=== PATIENT | female | born 1995 | race Caucasian/White ===

== ENCOUNTER 2017-02-13 12:24 | Inpatient (IN) | payer MEDICAID, OTHER ==
[2017-02-13] MEDS ORDERED: Acetaminophen TAB* 325 MG PO PRN (12:55)
[2017-02-13] MEDS ORDERED: Oxytocin in LR* 20 UNITS/1,000 ML BAG IVPB SCH (14:00)
[2017-02-13 14:15] LABS: Hematocrit 35 % (35-47); Hemoglobin 11.4 g/dl (12.0-16.0); Mean Corpuscular HGB Conc 33 g/dl (31-36); Mean Corpuscular Hemoglobin 28 pg (27-31); Mean Corpuscular Volume 86 fL (80-97); Mean Platelet Volume 9 um3 (7.4-10.4); Red Blood Count 4.04 10^6/ul (4.0-5.4); Red Cell Distribution Width 14 % (10.5-15); White Blood Count 8.6 10^3/ul (3.5-10.8)
[2017-02-13] MEDS ORDERED: OBEPIDURAL* 250 ML ONE (15:52)
[2017-02-13] MEDS ORDERED: Sodium Citrate/Citric Acid* 15 ML UDC PO PRN (16:21)
[2017-02-13] MEDS ORDERED: Phenylephrine IV* 40 MCG/ML 10 ML SYRINGE IV PUSH PRN ×2 (16:21)
[2017-02-13] MEDS ORDERED: OBEPIDURAL* 250 ML EPIDURAL SCH (17:00)
[2017-02-13] MEDS ORDERED: Sodium Citrate/Citric Acid* 15 ML UDC PO ONE (19:39)
[2017-02-13] MEDS ORDERED: ceFOXitin 2 GM IVPREMIX* 2 GM/50 ML BAG IVPB ONE (19:39)
[2017-02-13] MEDS ORDERED: Morphine PF AMP (0.5MG/ML)* 5 MG/10 ML AMP ONE (19:51)
[2017-02-13] MEDS ORDERED: fentaNYL* 50 MCG/ML 2 ML VIAL (100 MCG VIAL) ONE ×2 (19:51→22:00)
[2017-02-13] MEDS ORDERED: Chloroprocaine 3%* 20 ML VIAL ONE (19:53)
[2017-02-13] MEDS ORDERED: ceFOXitin 2 GM IVPREMIX* 2 GM/50 ML BAG ONE (20:01)
[2017-02-13] MEDS ORDERED: Sodium Citrate/Citric Acid* 15 ML UDC ONE (20:01)
[2017-02-13] MEDS ORDERED: Phenylephrine IV* 40 MCG/ML 10 ML SYRINGE ONE ×2 (20:34→21:05)
[2017-02-13] MEDS ORDERED: Ketorolac INJ* 30 MG/ML 1 ML VIAL IV PRN (20:56)
[2017-02-13] MEDS ORDERED: fentaNYL* 50 MCG/ML 2 ML VIAL (100 MCG VIAL) IV PRN (20:56)
[2017-02-13] MEDS ORDERED: OXYTOCIN* 10 UNITS/ML 1 ML VIAL ONE (21:05)
[2017-02-13] MEDS ORDERED: Ondansetron INJ* 2 MG/ML VIAL ONE (21:05)
[2017-02-13] MEDS ORDERED: Nalbuphine* 20 MG/ML 1 ML VIAL IV PRN (21:07)
[2017-02-13] MEDS ORDERED: Naloxone* 2 MG in NS 0.9% 250 ML* 250 ML IV PRN (21:07)
[2017-02-13] MEDS ORDERED: Naloxone* 0.4 MG/ML 1 ML VIAL IV PRN (21:07)
[2017-02-13] MEDS ORDERED: Ondansetron INJ* 2 MG/ML VIAL IV PRN (21:07)
[2017-02-13] MEDS ORDERED: Glycerin ADULT SUPP PR PRN (21:15)
[2017-02-13] MEDS ORDERED: Dibucaine 1% 28.35 GM TUBE PR PRN (21:15)
[2017-02-13] MEDS ORDERED: Zolpidem TAB* 5 MG PO PRN (21:15)
[2017-02-13] MEDS ORDERED: Witch Hazel PAD* JAR TOPICAL PRN (21:15)
[2017-02-13] MEDS ORDERED: Measles, Mumps,Rubella VACC* 0.5 ML/VIAL SUBCUT ONE (21:17)
[2017-02-13] MEDS ORDERED: Ketorolac INJ* 30 MG/ML 1 ML VIAL ONE (22:31)
[2017-02-14] MEDS: Ketorolac INJ* 30 MG/ML 1 ML VIAL IV PRN ×3 (04:38→16:58)
[2017-02-14] MEDS: oxyCODONE/Acetamin 5/325 MG* TAB PO PRN ×4 (06:03→21:29)
[2017-02-14 07:06] LABS: Hematocrit 28 % (35-47); Hemoglobin 9.4 g/dl (12.0-16.0); Mean Corpuscular HGB Conc 34 g/dl (31-36); Mean Corpuscular Hemoglobin 28 pg (27-31); Mean Corpuscular Volume 84 fL (80-97); Mean Platelet Volume 9 um3 (7.4-10.4); Red Blood Count 3.34 10^6/ul (4.0-5.4); Red Cell Distribution Width 14 % (10.5-15); White Blood Count 9.2 10^3/ul (3.5-10.8)
[2017-02-14] MEDS ORDERED: Nicotine PATCH 7 MG/24 HR* PATCH TRANSDERM SCH (08:00)
[2017-02-14] MEDS: Simethicone CHEW TAB* 80 MG PO SCH ×4 (09:01→21:29)
[2017-02-14] MEDS: Docusate CAP* 100 MG PO SCH ×3 (09:01→21:29)
[2017-02-14] MEDS: Ferrous Gluconate TAB* 324 MG TAB PO SCH ×2 (09:01→21:29)
[2017-02-14] MEDS ORDERED: Nicotine Patch Removal NOTE PATCH OFF SCH (21:00)
[2017-02-15] MEDS: oxyCODONE/Acetamin 5/325 MG* TAB PO PRN ×3 (04:27→21:32)
[2017-02-15] MEDS: Ibuprofen TAB* 600 MG PO PRN ×3 (04:27→18:19)
[2017-02-15] MEDS: Ferrous Gluconate TAB* 324 MG TAB PO SCH ×2 (08:43→21:32)
[2017-02-15] MEDS: Docusate CAP* 100 MG PO SCH ×3 (08:43→21:31)
[2017-02-15] MEDS: Simethicone CHEW TAB* 80 MG PO SCH ×3 (08:43→21:34)
[2017-02-16] MEDS: Ibuprofen TAB* 600 MG PO PRN ×2 (00:43→08:44)
[2017-02-16] MEDS: oxyCODONE/Acetamin 5/325 MG* TAB PO PRN (05:34)
[2017-02-16 08:10] VITALS: BP 141/89
[2017-02-16] MEDS: Ferrous Gluconate TAB* 324 MG TAB PO SCH (08:43)
[2017-02-16] MEDS: Simethicone CHEW TAB* 80 MG PO SCH (08:43)
--- NOTE | 2017-02-18 00:34 | OP ---
DATE OF OPERATION: 02/13/17 - ROOM #MCHOB-101 DATE OF : 89 SURGEON: Kamran Ayers MD. DATA ENTRY: Mirian Hernandez, Core Machine Operator. ANESTHESIOLOGIST: Colton Roman MD ANESTHESIA: Epidural. PRE-OP DIAGNOSIS: Postdated at 41 weeks with a persistent category II tracing. POST-OP DIAGNOSIS: Postdated at 41 weeks with a persistent category II tracing. OPERATIVE PROCEDURE: Primary low-transverse section. ESTIMATED BLOOD LOSS: 600 cc. IV FLUIDS: She received 1300 cc of IV crystalloid fluid. URINE OUTPUT: Clear. FINDINGS: Delivery of a viable male infant over clear fluid with a weight of 7 pounds 3 ounces and Apgars of 9 and 9. The placenta was grossly intact within normal limits. The uterus, adnexa, bowel, and bladder were all normal and there were no complications. DESCRIPTION OF PROCEDURE: The patient was taken to the operating room, where she was identified. She was placed on the operating table, where an epidural anesthetic was obtained without difficulty. She was then placed in the supine position with a leftward tilt, prepped and draped in a normal sterile fashion. A Pfannenstiel skin incision was made with a knife and carried through to the underlying layer of fascia. The fascia was then nicked in midline and extended laterally with curved Hankins scissors. The fascia was then grasped superiorly and inferiorly with Marylou clamps and dissected off sharply from the rectus muscle. The rectus muscle was in the midline bluntly. The peritoneum was identified, grasped with pickups, and entered sharply with Metzenbaum scissors, and extended superiorly and inferiorly sharply. A bladder blade was then inserted into the patient's abdomen. A bladder flap was then created using Metzenbaum scissors over which the bladder blade was then reintroduced. A uterine incision was then made with a knife, extended laterally with a bandage scissors. The infant's head was then grasped and delivered atraumatically. The nose and mouth were suctioned. The rest of the 's body was then delivered. The cord was clamped and cut, and the was handed off to awaiting senior sales assistant. Cord blood was sent to pathology. The placenta was removed manually. The uterus was then exteriorized, cleared of all clot and debris using moist laparotomy sponges. The uterine incision was then closed using 0 Polysorb suture in a running locked fashion with a second imbricating layer of 0 Polysorb suture. After hemostasis was obtained on the uterine incision, the uterus was then returned to the patient's abdomen. The gutters were then cleared of all clots and debris using moist laparotomy sponges. All the sponges and instruments were removed from the patient's abdomen. The peritoneum was then closed using 3-0 Polysorb suture in a running fashion. The fascia was closed using 0 Polysorb suture in a running fashion and the skin was closed with 4-0 Monocryl in a subcuticular stitch. The patient tolerated the procedure well. Sponge, lap, needle counts were correct x2. She was then transferred to the recovery room area in stable condition. [id number]/[facility] #: [id number] MELLO
== END 2017-02-16 12:37 | disposition home or self-care (01) | DRG 540 ==
LOC: MCHOBOUT 12:24 → MCHOB 12:56
PROVIDERS: ADMIT Obstetrics & Gynecology; ATTEND Obstetrics & Gynecology
PROC: 10907ZC Drainage of Amniotic Fluid, Therapeutic from Products of Conception, Via Natural or Artificial Opening (ICD-10-PCS; 2017-02-13)
PROC: 10D00Z1 Extraction of Products of Conception, Low, Open Approach (ICD-10-PCS; 2017-02-13)
PROC: 10H07YZ Insertion of Other Device into Products of Conception, Via Natural or Artificial Opening (ICD-10-PCS; 2017-02-13)
PROC: 3E033VJ Introduction of Other Hormone into Peripheral Vein, Percutaneous Approach (ICD-10-PCS; principal; 2017-02-13 20:15)
DX: O48.0 Post-term pregnancy (principal); F17.200 Nicotine dependence, unspecified, uncomplicated; O99.334 Smoking (tobacco) complicating childbirth; Z3A.40 40 weeks gestation of pregnancy; Z37.0 Single live birth; O90.81 Anemia of the puerperium; O76 Abnormality in fetal heart rate and rhythm complicating labor and delivery
CPT/HCPCS: 36415; 85025; 86850; 86900; 86901; A9270-GY; J0694; J1885; J2300; J2400; J2405; J2590; J3010

== ENCOUNTER 2018-07-22 16:14 | Emergency (ER) | payer OTHER ==
--- NOTE | 2018-07-22 17:30 | ED ---
Progress - Progress Note Progress Note: Patient requests female physician. Re-Evaluation - Re-Evaluation First Eval Re-Evaluation Time: 20:20 Comment: pain still present Second Eval Re-Evaluation Time: 21:15 Comment: explained results to patient Course/Dx - Diagnoses Provider Diagnoses: Constipation, UTI (urinary tract infection), Discharge - Sign-Out/Discharge Documenting (check all that apply): Patient Departure - Discharge Plan Condition: Good Disposition: HOME Prescriptions: Nitrofurantoin Monohyd/M-Cryst [Macrobid 100 mg Capsule] 100 mg PO BID #13 cap Psyllium EDGAR* [Metamucil EDGAR*] 1 pkt PO DAILY #20 packet Patient Education Materials: Urinary Tract Infection in (ED) Referrals: Mirian Hernandez CNM [Primary Care Provider] - Additional Instructions: add metamucil as needed for constipation take macrobid twice a day for 7 days Take tyenlol as needed for pain Follow up with ob within 7 days Return to ED if develop any fever or any new or worsening symptoms - Billing Disposition and Condition Condition: GOOD Disposition: Home - Attestation Statements Document Initiated by Scribe: Yes Documenting Scribe: Clyde Ravi Provider For Whom Scribe is Documenting (Include Credential): Navi Ulloa MD Scribe Attestation: Clyde Carson, lisaed for Navi Ulloa MD on 07/22/18 at 2148. Scribe Documentation Reviewed: Yes Provider Attestation: The documentation as recorded by the Clyde rendon accurately reflects the service I personally performed and the decisions made by me, Navi Ulloa MD Status of Scribe Document: Viewed
--- NOTE | 2018-07-22 18:06 | ED ---
GI/ HPI - HPI Summary HPI Summary: 22 year old female at 17 weeks presents with dysuria for the past couple days. She denies any flank pain. She denies any fevers. She admits occasional nausea. She states that she's been having crampy lower abdominal pain. She states that she was treated for chlamydia month ago but her boyfriend did not take the treatment as prescribed so she got reinfected. She just took the tablets last night and has not had sex since. She admits to abnormal vaginal discharge. She denies any vaginal bleeding. she states she's been having rectal pain whenever she has a bowel movement. She states it is a burning itching pain. She states she she noticed some occasional blood when she wipes. States she's having issues with constipation but is now having normal bowel movements. she states that the abdominal pain feels like period cramps and is constant does not feel like contractions. she denies any back pain. no fevers. - History of Current Complaint Chief Complaint: EDUrogenitalProblems Time Seen by Provider: 07/22/18 17:12 Stated Complaint: POSS UTI Pain Intensity: 5 - Allergy/Home Medications Allergies/Adverse Reactions: Allergies Allergy/AdvReac Type Severity Reaction Status Date / Time No Known Allergies Allergy Verified 07/22/18 16:46 PMH/Surg Hx/FS Hx/Imm Hx Endocrine/Hematology History: Denies: Hx Diabetes Cardiovascular History: Denies: Hx Hypertension History: Denies: Hx Renal Disease Infectious Disease History: No Infectious Disease History: Denies: Traveled Outside the [place] in Last 30 Days - Family History Known Family History: Positive: Non-Contributory - Social History Alcohol Use: None Substance Use Type: Reports: None Smoking Status (MU): Light Every Day Tobacco Smoker Type: Cigarettes Amount Used/How Often: 1 per day Review of Systems Negative: Fever Negative: Chest Pain Negative: Shortness Of Breath Positive: Abdominal Pain, Nausea, Other - rectal pain. Negative: Vomiting Positive: dysuria All Other Systems Reviewed And Are Negative: Yes Physical Exam Triage Information Reviewed: Yes Vital Signs On Initial Exam: Initial Vitals Temp Pulse Resp BP Pulse Ox 99.0 F 99 20 122/73 98 07/22/18 16:39 07/22/18 16:39 07/22/18 16:39 07/22/18 16:39 07/22/18 16:39 Vital Signs Reviewed: Yes Appearance: Positive: Well-Appearing Skin: Positive: Warm, Dry Head/Face: Positive: Normal Head/Face Inspection Eyes: Positive: Normal, Conjunctiva Clear ENT: Positive: Pharynx normal Respiratory/Lung Sounds: Positive: Clear to Auscultation, Breath Sounds Present Cardiovascular: Positive: Normal, RRR Abdomen Description: Positive: Nontender, Soft, Other: - normal rectal tone, hemorrhoids present. Negative: CVA Tenderness (R), CVA Tenderness (L) Bowel Sounds: Positive: Present Musculoskeletal: Positive: Normal Neurological: Positive: Normal Psychiatric: Positive: Normal Diagnostics - Vital Signs Vital Signs Temp Pulse Resp BP Pulse Ox 07/22/18 16:39 99.0 F 99 20 122/73 98 - Laboratory Result Diagrams: 07/22/18 18:24 07/22/18 18:24 Lab Statement: Any lab studies that have been ordered have been reviewed, and results considered in the medical decision making process. - Ultrasound No standard instances Ultrasound Interpretation Completed By: Radiologist Summary of Ultrasound Findings: IMPRESSION: Single live intrauterine fetus in cephalic presentation with a composite age of. 18 weeks 2 days. The EDC is 12/21. Re-Evaluation - Re-Evaluation First Eval Re-Evaluation Time: 20:20 Comment: pain still present Second Eval Re-Evaluation Time: 21:15 Comment: explained results to patient GIGU Course/Dx - Course Course Of Treatment: 22 year old female at 17 weeks presents with dysuria for the past couple days. She denies any flank pain. She denies any fevers. She admits occasional nausea. She states that she's been having crampy lower abdominal pain. She states that she was treated for chlamydia month ago but her boyfriend did not take the treatment as prescribed so she got reinfected. She just took the tablets last night and has not had sex since. She admits to abnormal vaginal discharge. She denies any vaginal bleeding. she states she's been having rectal pain whenever she has a bowel movement. She states it is a burning itching pain. She states she she noticed some occasional blood when she wipes. States she's having issues with constipation but is now having normal bowel movements. on exam has nontender abd. rectal exam has hemorrhoids present. pelvic exam nontender. clear discharge present. got std cultures. expect chlamydia to come back positive as patient just took treatment last night with azithromycin 1000mg. wbc normal. crp elevated. u/s normal intrauterine . urine shows potential uti with symptoms will treat with macrobid. will place on metamucil for constipation. told to follow up with ob. patient understand and agrees with plan. - Diagnoses Differential Diagnoses - Female: , STD, Ureteral Calculi Provider Diagnoses: Constipation, UTI (urinary tract infection), Discharge - Sign-Out/Discharge Documenting (check all that apply): Patient Departure - Discharge Plan Condition: Good Disposition: HOME Prescriptions: Nitrofurantoin Monohyd/M-Cryst [Macrobid 100 mg Capsule] 100 mg PO BID #13 cap Psyllium EDGAR* [Metamucil EDGAR*] 1 pkt PO DAILY #20 packet Patient Education Materials: Urinary Tract Infection in (ED) Referrals: Mirian Hernandez CNM [Primary Care Provider] - Additional Instructions: add metamucil as needed for constipation take macrobid twice a day for 7 days Take tyenlol as needed for pain Follow up with ob within 7 days Return to ED if develop any fever or any new or worsening symptoms - Billing Disposition and Condition Condition: GOOD Disposition: Home
[2018-07-22 18:36] LABS: ABS Basophils 0 10^3/ul (0-0.2); ABS Eosinophils 0 10^3/ul (0-0.6); ABS Lymphocytes 0.7 10^3/ul (1.0-4.8); ABS Monocytes 0.3 10^3/ul (0-0.8); ABS Neutrophils 3.6 10^3/ul (1.5-7.7); ABS Nucleated RBC 0 10^3/ul; Eosinophil % 0.2 %; Hematocrit 34 % (35-47); Hemoglobin 11.6 g/dl (12.0-16.0); Lymphocyte % 15.5 %; Mean Corpuscular HGB Conc 34 g/dl (31-36); Mean Corpuscular Hemoglobin 29 pg (27-31); Mean Corpuscular Volume 83 fL (80-97); Mean Platelet Volume 7.7 fL (7.4-10.4); Nucleated Red Blood Cells % 0; Platelet Count 199 10^3/ul (150-450); Red Blood Count 4.08 10^6/ul (4.00-5.40); Red Cell Distribution Width 14 % (10.5-15); White Blood Count 4.6 10^3/ul (3.5-10.8)
[2018-07-22 18:57] LABS: Albumin 3.7 g/dL (3.2-5.2); Albumin/Globulin Ratio 1.2 (1-3); BUN/Creatinine Ratio 7.8 (8-20); C Reactive Protein 102.91 mg/L (<8.01); Calcium 8.8 mg/dL (8.6-10.3); EGFR Non-African American 150.8 (>60); Globulin 3.1 g/dL (2-4); Potassium 3.6 mmol/L (3.5-5.0); Total Bilirubin 0.3 mg/dL (0.2-1.0); Total Protein 6.8 g/dL (6.4-8.9)
[2018-07-22 19:29] LABS: Urine Appearance Clear; Urine Bacteria Absent (Absent); Urine Bilirubin Negative (Negative); Urine Blood Negative (Negative); Urine Color Amber; Urine Glucose Negative (Negative); Urine Ketones 1+ (Negative); Urine Nitrite Negative (Negative); Urine Protein 1+(30 mg/dL) (Negative); Urine Red Blood Cell Trace(0-2/hpf) (Absent); Urine Specific Gravity 1.019 (1.010-1.030); Urine Urobilinogen Positive (Negative); Urine White Blood Cell 1+(6-10/hpf) (Absent)
[2018-07-22] MEDS ORDERED: Nitrofurantoin Macrocrystals* 50 MG CAP PO ONE (19:41)
[2018-07-22 22:06] VITALS: BP 115/68
== END 2018-07-22 21:30 | disposition home or self-care (01) ==
LOC: ED 16:14
DX: O23.41 Unspecified infection of urinary tract in pregnancy, first trimester (principal); Z3A.17 17 weeks gestation of pregnancy; R10.84 Generalized abdominal pain; R30.0 Dysuria; R11.0 Nausea; F17.210 Nicotine dependence, cigarettes, uncomplicated; K59.00 Constipation, unspecified; R10.2 Pelvic and perineal pain
CPT/HCPCS: 36415; 76815; 80053; 81003; 81015; 85025; 86140; 87086; 87480; 87491; 87510; 87591; 87661; 99283; A9270-GY

== ENCOUNTER 2018-12-16 13:28 | Inpatient (IN) | payer OTHER ==
[2018-12-16] MEDS ORDERED: Lactated Ringers 1000 ML Bag* 1,000 ML IV ONE ×2 (14:29→16:17)
[2018-12-16] MEDS ORDERED: Buffered Lidocaine 1% SYRIN* 1 ML/SYRINGE INTRADERM ONE (14:29)
--- NOTE | 2018-12-16 14:55 | HP ---
General Information - Reason for Visit leaking fluid - General Information Maternal Age: 23 Grav: 3 Para: 2 SAB: 0 IEA: 0 Estimated Due Date: 12/17/18 Determined By: Early Ultrasound Maternal Blood Type and Rh: A Positive - Results this Serology/RPR Result: Non-Reactive Rubella Result: Non-Immune HBsAg Result: Negative HIV Result: Negative GBS Culture Result: Negative Past Medical History Delivery History: See Records Pertinent Past Medical History: See Records Pertinent Past Surgical History: See Records Pertinent Family History: See Records - Antepartal Records Antepartal Records: Reviewed, Complicated by: - obesity /desired vaginal after section but now declines Review of Systems Constitutional: Comfortable CV Complaint: No Respiratory: Shortness of Breath: No Gastrointestinal: No Nausea/Vomiting, Normal Bowel Movement Genitourinary: Leaking Fluid, No Dysuria, No Bleeding Musculoskeletal: No Complaint Neurological: No Headache Movement: Normal Exam Allergies/Adverse Reactions: Allergies No Known Allergies Allergy (Verified 12/16/18 14:02) T : 98.1 BP : 117/71 RR : 18 P: 100 Lab Values - Entire Visit: Laboratory Tests 12/16/18 13:40 Vag Amniotic Fld Detect Positive - Measurements Height: 5 ft 6 in Weight: 214 lb Weight in lbs: 214.823043 Body Mass Index (BMI): 34.5 Pre- Weight: 230 lb Weight Gained This : -16 lbs and 0 ozs - Exam Breast: Breast Exam Deferred CVA: No CVA Tenderness Extremities: No Edema Heart: Normal Rhythm/Heart Sounds HEENT: No Significant Findings Lungs: Clear Bilaterally Rectal: Rectal Exam Deferred Reflexes: DTR 2+ Thyroid: No Thyromegaly - Abdominal Exam Abdomen Exam: Non-Tender - Ultrasound/Biophysical Profile Ultrasound Status: Not Done Targeted Exam Findings Cervical Exam: 3cm Effacement: 70% Station: -2 Presenting Part: Vertex Membrane Status: Leaking Amniotic Fluid Evaluation: Gross Rupture EFM Findings - External Monitor Findings Baseline Heart Rate: 130 External Monitor Findings: Accelerations Present, No Pattern of Variable or Late Decelerations, Variability Moderate Contractions: Irregular Assessment/Plan - Assessment PT 23 yo G 3 P2002 presents at 39 6/7 with spontaneous rupture of membranes meconium and now declines a trial of labor after revieiw of risks of trial of labor after section. Pt is aware of risks of vaginal after section to include uterine rupture with subsequent risk of need for blood transfusion further surgery and cerebral palsy risk to the baby should rupture occur. Pt is aware this risk is under 2 %. Pt is also aware of risk of repeat section to include infection, bleeding ,damage to internal organs, pain scarring and risks of subsequent sections. Plan is to wait 6 hours after eating prior to repeating section as she is not in active labor and no distress is present. - Plan Plan Comment: plan is as outlined in above paragraph
[2018-12-16] MEDS ORDERED: Lactated Ringers 1000 ML Bag* 1,000 ML IV SCH ×3 (15:00→22:00)
[2018-12-16 15:16] LABS: ABS Basophils 0.1 10^3/ul (0-0.2); ABS Lymphocytes 1.3 10^3/ul (1.0-4.8); ABS Monocytes 0.5 10^3/ul (0-0.8); ABS Neutrophils 9.5 10^3/ul (1.5-7.7); Eosinophil % 0.4 %; Hematocrit 32 % (35-47); Hemoglobin 10.5 g/dL (12.0-16.0); Lymphocyte % 11.7 %; Mean Corpuscular HGB Conc 33 g/dL (31-36); Mean Corpuscular Hemoglobin 26 pg (27-31); Mean Corpuscular Volume 80 fL (80-97); Mean Platelet Volume 8.4 fL (7.4-10.4); Platelet Count 312 10^3/uL (150-450); Red Cell Distribution Width 14 % (10.5-15); White Blood Count 11.5 10^3/uL (3.5-10.8)
[2018-12-16] MEDS ORDERED: OBEPIDURAL* 250 ML EPIDURAL ONE (15:18)
[2018-12-16] MEDS ORDERED: ceFOXitin 2 GM IVPREMIX* 2 G/50 ML BAG IVPB ONE (15:51)
[2018-12-16] MEDS ORDERED: Phenylephrine 10 MG/ML VIAL* 1 ML VIAL ONE (15:54)
[2018-12-16] MEDS ORDERED: Famotidine TAB* 20 MG PO PRN (16:17)
[2018-12-16] MEDS ORDERED: Phenylephrine 40 MCG/ML SYRINGE IV PUSH PRN ×2 (16:17)
[2018-12-16] MEDS ORDERED: Sodium Citrate/Citric Acid* 15 ML UDC PO PRN (16:17)
[2018-12-16] MEDS ORDERED: OBEPIDURAL* 250 ML EPIDURAL SCH (17:00)
[2018-12-16] MEDS ORDERED: Famotidine IV* 10 MG/ML 2 ML (20 mg) IV SLOW PU ONE (18:31)
[2018-12-16] MEDS ORDERED: Sodium Citrate/Citric Acid* 15 ML UDC PO ONE (18:32)
[2018-12-16] MEDS ORDERED: Phenylephrine 40 MCG/ML SYRINGE ONE (19:42)
[2018-12-16] MEDS ORDERED: OXYTOCIN* 10 UNITS/ML 1 ML VIAL ONE (19:42)
[2018-12-16] MEDS ORDERED: Chloroprocaine 3%* 20 ML VIAL ONE (19:43)
[2018-12-16] MEDS ORDERED: fentaNYL* 50 MCG/ML 2 ML VIAL (100 MCG VIAL) ONE ×2 (19:43→20:14)
[2018-12-16] MEDS ORDERED: Lidocaine 2% EPI 1:200000 MPF*10-20 ML VIAL ONE (19:43)
[2018-12-16] MEDS ORDERED: Morphine PF AMP (0.5MG/ML)* 5 MG/10 ML AMP ONE (19:43)
[2018-12-16] MEDS ORDERED: Naloxone* 0.4 MG/ML 1 ML VIAL IV PRN ×2 (20:37→20:38)
[2018-12-16] MEDS ORDERED: fentaNYL* 50 MCG/ML 2 ML VIAL (100 MCG VIAL) IV PRN (20:37)
[2018-12-16] MEDS ORDERED: Ondansetron INJ* 2 MG/ML VIAL IV PRN ×2 (20:37→20:38)
[2018-12-16] MEDS ORDERED: diPHENhydraMINE IV* 50 MG/ML 1 ml VIAL (BENADRYL) IV PRN (20:38)
[2018-12-16] MEDS ORDERED: Nalbuphine* 10 MG/ML 1 ML VIAL IV PRN (20:38)
[2018-12-16] MEDS ORDERED: oxyCODONE/Acetamin 5/325 MG* TAB PO PRN ×2 (20:38)
[2018-12-16] MEDS ORDERED: DiMENhydriNATE IV* 50 MG/ML VIAL ONE (20:53)
[2018-12-16] MEDS ORDERED: Acetaminophen TAB* 325 MG PO PRN (21:02)
[2018-12-16] MEDS ORDERED: Dibucaine 1% 28.35 GM TUBE PR PRN (21:02)
[2018-12-16] MEDS ORDERED: Measles, Mumps,Rubella VACC* 0.5 ML/VIAL SUBCUT ONE (21:02)
[2018-12-16] MEDS ORDERED: Glycerin ADULT SUPP PR PRN (21:02)
[2018-12-16] MEDS ORDERED: Witch Hazel PAD* JAR TOPICAL PRN (21:02)
[2018-12-16] MEDS ORDERED: Meperidine Ampule* 100 MG/2 ML AMPUL IV SLOW PU ONE (21:45)
[2018-12-16] MEDS ORDERED: Oxytocin in LR* 20 UNITS/1,000 ML BAG IVPB SCH (22:00)
--- NOTE | 2018-12-17 00:12 | OP ---
OPERATIVE REPORT: DATE OF OPERATION: 12/16/18 DATE OF : [birth year] SURGEON: Irene Tariq MD WAGON WINDER: Tonja Padilla MD ANESTHESIOLOGIST: Dr. Oswald. ANESTHESIA: Epidural. PRE-OP DIAGNOSES: Intrauterine 39-6/7 weeks, desires repeat section, spontaneous rupture of membranes, labor. POST-OP DIAGNOSES: Intrauterine 39-6/7th weeks, desires repeat section, spontaneo us rupture of membranes, labor, delivered. OPERATIVE PROCEDURE: Repeat low-transverse section. ESTIMATED BLOOD LOSS: 600 cc. IV FLUIDS: 2200 cc of crystalloid. URINE OUTPUT: 200 cc of concentrated yellow urine. FINDINGS: Revealed a vertex male with Apgars 9 at one minute, 9 at five minutes, 6 pounds 4 o unces. Moderate meconium and meconium-stained placenta. Placenta is manually extracted. Three-vesse l cord intact. Uterine cavity without evidence of retained membranes or placental tissue. Tubes and ovaries with normal appearance. COMPLICATIONS: None apparent. DISPOSITION: Stable to recovery room. DESCRIPTION OF PROCEDURE: The patient was placed in dorsal lithotomy position. The abdomen was prepp ed and draped in a sterile standard fashion. Anesthesia was tested to appropriate level. Incision w as made through prior incision with scalpel after confirming adequate anesthesia level and performing universal protocol. This incision was then carried down through to the fascia. Fascia was scored i n the midline, extended laterally and superiorly using curved Hankins scissors and from the re ctus muscle superiorly and inferiorly with blunt and sharp dissection. The peritoneum was then entere d bluntly. The peritoneal incision was extended bluntly. Bladder blade was inserted. Lower uterine segment was identified, Allis was used to tent up on the lower uterine segment. An incision was mad e with scalpel down to the membranes. This incision was extended laterally and superiorly using band age scissors. Infant was wedged ARASH. Head was delivered. Anterior, posterior shoulder delivered. Cord was allowed to pulse for greater than a minute, was then clamped and then cut, and handed off to waiting magneto electrician. Appropriate cord blood was obtained. Placenta was then manually extracted an d noted to be meconium stained, had 3-vessel cord and intact. The uterus was exteriorized, wrapped i n 1 moist laparotomy sponge. Noted to have normal tubes and ovaries bilaterally. Uterine cavity was explored, noted to be free of any membranes or placental tissue. The uterine incision itself was cl amped with broad Allis. There was a small extension noted to the left lateral and this was reapproxi mated, first using 0-Vicryl in a locked fashion and then the transverse incision was reapproximated u sing 0-Vicryl x2, first layer running locked, second layer running imbricated. The left lower uterin e extension was then also imbricated for complete hemostasis. The uterus was returned intraabdominal ly. Colic gutters were lavaged. Hemostasis was assured at the hysterotomy site and the extension. T he peritoneum was then clamped with Sherlyn's and reapproximated using 3- 0 Vicryl in a running fashion . Subfascial layer was visualized. Hemostasis assured and reapproximated using 0-Vicryl x2 in a run olivia fashion. After closure of the fascia using 0-Vicryl, the subcutaneous tissue was lavaged and he mostasis was assured with Bovie coagulation and a Camper stitch was then placed x3 interrupted for cl osure of Camper fascia. The skin was then reapproximated in a subcuticular fashion using 4-0 Monocry l. Mastisol and Steri-Strips were then applied. All sponge, instrument, and blade counts were corre ct throughout the case. The patient tolerated the procedure well and went to recovery room in stable condition. [id number]/[facility] #: [id number]
[2018-12-17] MEDS: Ketorolac INJ* 30 MG/ML 1 ML VIAL IV PRN ×2 (01:29→08:16)
[2018-12-17 07:07] LABS: ABS Eosinophils 0.1 10^3/ul (0-0.6); ABS Lymphocytes 1.9 10^3/ul (1.0-4.8); ABS Monocytes 0.6 10^3/ul (0-0.8); ABS Neutrophils 10.3 10^3/ul (1.5-7.7); Eosinophil % 0.6 %; Hematocrit 28 % (35-47); Hemoglobin 9.2 g/dL (12.0-16.0); Mean Corpuscular HGB Conc 33 g/dL (31-36); Mean Corpuscular Hemoglobin 26 pg (27-31); Mean Corpuscular Volume 80 fL (80-97); Mean Platelet Volume 8.7 fL (7.4-10.4); Platelet Count 258 10^3/uL (150-450); Red Blood Count 3.52 10^6 /uL (3.70-4.87); Red Cell Distribution Width 14 % (10.5-15); White Blood Count 12.9 10^3/uL (3.5-10.8)
[2018-12-17] MEDS: Ferrous Gluconate TAB* 324 MG TAB PO SCH ×2 (08:16→20:22)
[2018-12-17] MEDS: Simethicone TAB* 80 MG TAB.CHEW PO SCH ×4 (08:17→20:22)
[2018-12-17] MEDS: Docusate CAP* 100 MG PO SCH ×3 (08:17→20:22)
[2018-12-17] MEDS ORDERED: Nicotine PATCH 7 MG/24 HR* PATCH TRANSDERM SCH (13:00)
[2018-12-17] MEDS: oxyCODONE/Acetamin 5/325 MG* TAB PO PRN ×2 (19:06→22:10)
[2018-12-17] MEDS ORDERED: diPHENhydraMINE PO* 25 MG PO PRN (19:39)
[2018-12-17] MEDS: Ibuprofen TAB* 600 MG PO PRN (20:46)
[2018-12-17] MEDS ORDERED: Nicotine Patch Removal NOTE PATCH OFF SCH (21:00)
[2018-12-18] MEDS: oxyCODONE/Acetamin 5/325 MG* TAB PO PRN ×4 (05:35→22:19)
[2018-12-18] MEDS: Ferrous Gluconate TAB* 324 MG TAB PO SCH ×2 (09:13→20:31)
[2018-12-18] MEDS: Docusate CAP* 100 MG PO SCH ×3 (09:13→20:31)
[2018-12-18] MEDS: Simethicone TAB* 80 MG TAB.CHEW PO SCH ×4 (09:13→20:31)
[2018-12-18] MEDS: Ibuprofen TAB* 600 MG PO PRN ×2 (13:24→19:37)
[2018-12-19] MEDS: Ibuprofen TAB* 600 MG PO PRN ×2 (02:06→08:22)
[2018-12-19] MEDS ORDERED: Tetan/Diph/Pertus SYR(Tdap)* 0.5 ML SYR(BOOSTRIX) use SYR IM ONE (05:05)
[2018-12-19] MEDS: Docusate CAP* 100 MG PO SCH (08:21)
[2018-12-19] MEDS: oxyCODONE/Acetamin 5/325 MG* TAB PO PRN (08:21)
[2018-12-19] MEDS: Simethicone TAB* 80 MG TAB.CHEW PO SCH (08:21)
[2018-12-19 08:25] VITALS: BP 134/76
[2018-12-19] MEDS ORDERED: Glycerin ADULT SUPP ONE (08:36)
[2018-12-19] MEDS ORDERED: Glycerin ADULT SUPP PR PRN (08:59)
== END 2018-12-19 11:23 | disposition home or self-care (01) | DRG 540 ==
LOC: MCHOBOUT 13:28 → MCHOB 14:16
PROVIDERS: ADMIT Obstetrics & Gynecology; ATTEND Obstetrics & Gynecology
PROC: 10D00Z1 Extraction of Products of Conception, Low, Open Approach (ICD-10-PCS; principal; 2018-12-16 19:49)
DX: O34.211 Maternal care for low transverse scar from previous cesarean delivery (principal); O99.214 Obesity complicating childbirth; O77.0 Labor and delivery complicated by meconium in amniotic fluid; O90.81 Anemia of the puerperium; D64.9 Anemia, unspecified; Z3A.39 39 weeks gestation of pregnancy; Z37.0 Single live birth
CPT/HCPCS: 36415; 84112; 85025; 86850; 86900; 86901; 90715; A9270-GY; J0694; J1200; J1240; J1885; J2175; J2300; J2400; J2590; J3010

== ENCOUNTER → 2019-02-09 13:45 | Emergency (ER) | payer OTHER ==
[~2019-02-09 13:45] MED LIST: Penicillin VK TAB* 250 MG PO ONE; traMADol TAB* 50 MG PO ONE
--- NOTE | 2019-02-09 14:20 | ED ---
Throat Pain/Nasal Congestion - HPI Summary HPI Summary: A 23 y/o female presents to [facility] with a chief complaint of dental pain. She notes that her tooth broke 3-4 days ago. She says that she has pain in her gums and that she has other teeth that hurt, along with multiple cavities. She also reports ear ache and a headache. She rates her current pain as a 7.5/10 in severity. She says that she took 8 200mg tablets of Ibuprofen, Orajel and Excedrin which has not alleviated her symptoms. She denies any PMHx or any drug use. She reports rare EtOH use. - History of Current Complaint Chief Complaint: EDDentalPain Time Seen by Provider: 02/09/19 14:12 Hx Obtained From: Patient Onset/Duration: Sudden Onset, Lasting Days, Still Present Severity: Severe Associated Signs And Symptoms: Positive: Negative Cough: None - Allergies/Home Medications Allergies/Adverse Reactions: Allergies Allergy/AdvReac Type Severity Reaction Status Date / Time No Known Allergies Allergy Verified 12/16/18 14:02 PMH/Surg Hx/FS Hx/Imm Hx Endocrine/Hematology History: Denies: Hx Diabetes Cardiovascular History: Denies: Hx Hypertension History: Reports: Other Problems/Disorders - hx chlamydia this and treated Denies: Hx Renal Disease Infectious Disease History: No Infectious Disease History: Denies: Traveled Outside the [place] in Last 30 Days - Family History Known Family History: Positive: Non-Contributory - Social History Alcohol Use: None Substance Use Type: Reports: None Smoking Status (MU): Light Every Day Tobacco Smoker Type: Cigarettes Amount Used/How Often: 1 per day Have You Smoked in the Last Year: Yes Review of Systems Negative: Fever, Chills Negative: Erythema Positive: Dental Pain, Ear Ache Negative: Chest Pain Negative: Shortness Of Breath, Cough Negative: Abdominal Pain, Vomiting, Nausea Negative: dysuria, hematuria Negative: Myalgia, Edema Negative: Rash Neurological: Negative - dizziness Positive: Headache All Other Systems Reviewed And Are Negative: Yes Physical Exam - Summary Physical Exam Summary: Constitutional: Well-developed, Well-nourished, Alert. (-) Distressed Skin: Warm, Dry HENT: Normocephalic; Atraumatic, right lower 1st molar is fractured no drainable abscess no trismus Eyes: Conjunctiva normal Neck: Musculoskeletal ROM normal neck. (-) JVD, (-) Stridor, (-) Tracheal deviation Cardio: Rhythm regular, rate normal, Heart sounds normal; Intact distal pulses; The pedal pulses are 2+ and symmetric. Radial pulses are 2+ and symmetric. (-) Murmur Pulmonary/Chest wall: Effort normal. (-) Respiratory distress, (-) Wheezes, (-) Rales Abd: Soft, (-) tenderness, (-) Distension, (-) Guarding, (-) Rebound Musculoskeletal: (-) Edema Lymph: (-) Cervical adenopathy Neuro: Alert, Oriented x3 Psych: Mood and affect Normal Triage Information Reviewed: Yes Vital Signs On Initial Exam: Initial Vitals Temp Pulse Resp BP Pulse Ox 99.1 F 106 18 128/73 98 02/09/19 13:46 02/09/19 13:46 02/09/19 13:46 02/09/19 13:46 02/09/19 13:46 Vital Signs Reviewed: Yes Diagnostics - Vital Signs Vital Signs Temp Pulse Resp BP Pulse Ox 02/09/19 13:46 99.1 F 106 18 128/73 98 - Laboratory Lab Statement: Any lab studies that have been ordered have been reviewed, and results considered in the medical decision making process. EENT Course/Dx - Course Course Of Treatment: A 23 y/o female presents to [facility] with a chief complaint of dental pain. She notes that her tooth broke 3-4 days ago. She says that she has pain in her gums and that she has other teeth that hurt, along with multiple cavities. She also reports ear ache and a headache. She rates her current pain as a 7.5/10 in severity. She says that she took 8 200mg tablets of Ibuprofen, Orajel and Excedrin which has not alleviated her symptoms. She denies any PMHx or any drug use. She reports rare EtOH use. The physical exam revealed right lower 1st molar is fractured no drainable abscess no trismus. In the ED course the patient was given Penicillin PO and Ultram PO. The patient will be discharged with prescriptions for Ultram and Penicillin, and follow up with [facility] and a dentist. The patient is agreeable with this plan. - Diagnoses Provider Diagnoses: Dental decay Discharge - Sign-Out/Discharge Documenting (check all that apply): Patient Departure - DC Patient Received Moderate/Deep Sedation with Procedure: No - Discharge Plan Condition: Stable Disposition: HOME Prescriptions: Penicillin VK TAB* [Penicillin VK 250 mg Tab*] 500 mg PO QID #21 tab traMADol TAB* [Ultram*] 50 mg PO Q12H PRN #6 tab MDD 2 PRN Reason: Pain - Moderate To Severe Patient Education Materials: Toothache (ED) Referrals: [facility] [Outside] (2-3 days) Additional Instructions: Call a dentist this afternoon. RETURN TO THE EMERGENCY DEPARTMENT FOR CHANGING OR WORSENING SYMPTOMS - Attestation Statements Document Initiated by Scribe: Yes Documenting Scribe: Vladislav Gao Provider For Whom Scribe is Documenting (Include Credential): Navi Ulloa MD Scribe Attestation: Vladislav Carson, scribed for Navi Ulloa MD on 02/09/19 at 1423. Status of Scribe Document: Ready
[2019-02-09 14:42] VITALS: BP 136/93
== END | disposition home or self-care (01) ==
LOC: ED 13:45
DX: K02.9 Dental caries, unspecified (principal); F17.210 Nicotine dependence, cigarettes, uncomplicated
CPT/HCPCS: 99282; A9270-GY

== ENCOUNTER 2019-03-29 14:53 | Emergency (ER) | payer OTHER ==
[2019-03-29] MEDS: Benzocaine/Butamben/Tetracain (CETACAINE - SINGLE USE) 5 gm TOPICAL ONE (17:40)
[2019-03-29 17:58] VITALS: BP 119/78
--- NOTE | 2019-03-29 18:03 | ED ---
Throat Pain/Nasal Congestion - HPI Summary HPI Summary: Patient is a 23-year-old female who presents emergency department for dental pain times one week. Patient notes she has a dental fracture and pain is getting worse. Patient states she has an appointment with her dentist in a few weeks to have the tooth extracted. Patient noted facial swelling today. Denies fever, chills, nausea, vomiting. No past medical history. Symptoms are mild in severity. Patient has been taking ibuprofen with no improvement of pain. - History of Current Complaint Chief Complaint: EDDentalPain Time Seen by Provider: 03/29/19 16:24 Hx Obtained From: Patient - Allergies/Home Medications Allergies/Adverse Reactions: Allergies Allergy/AdvReac Type Severity Reaction Status Date / Time No Known Allergies Allergy Verified 12/16/18 14:02 PMH/Surg Hx/FS Hx/Imm Hx Previously Healthy: Yes Endocrine/Hematology History: Denies: Hx Diabetes Cardiovascular History: Denies: Hx Hypertension History: Reports: Other Problems/Disorders - hx chlamydia this and treated Denies: Hx Renal Disease Infectious Disease History: No Infectious Disease History: Denies: Traveled Outside the [place] in Last 30 Days - Family History Known Family History: Positive: Non-Contributory - Social History Occupation: Unemployed Lives: With Family Alcohol Use: None Substance Use Type: Reports: None Smoking Status (MU): Light Every Day Tobacco Smoker Type: Cigarettes Amount Used/How Often: 1 per day Have You Smoked in the Last Year: Yes Review of Systems Constitutional: Negative Negative: Fever, Chills Positive: Dental Pain Gastrointestinal: Negative Skin: Negative All Other Systems Reviewed And Are Negative: Yes Physical Exam Triage Information Reviewed: Yes Vital Signs On Initial Exam: Initial Vitals Temp Pulse Resp BP Pulse Ox 97.8 F 87 18 134/87 98 03/29/19 14:56 03/29/19 14:56 03/29/19 14:56 03/29/19 14:56 03/29/19 14:56 Vital Signs Reviewed: Yes Appearance: Positive: Well-Appearing - Pt. sitting on bed in NAD. Skin: Positive: Warm, Dry Head/Face: Positive: Normal Head/Face Inspection Eyes: Positive: Normal, EOMI Dental: Positive: Other - Dental fx to first bottom right molar. Surrounding gums are erythematous and edematous. Small abscess noted. Mild edema over mandibular region. No submandibular edema. No trismus. Neck: Positive: Supple, Nontender, No Lymphadenopathy Neurological: Positive: Normal, CN Intact II-III Psychiatric: Positive: Affect/Mood Appropriate Procedures - Procedure Summary Procedure Summary: I and D of dental abscess: Abscess surrounding first bottom molar on right was anesthetized with cetacaine and cleaned with betadine. Small knick was made with tip of an 11 blade. Small amount of purulent matter expressed. Pt. tolerated well. Diagnostics - Vital Signs Vital Signs Temp Pulse Resp BP Pulse Ox 03/29/19 14:56 97.8 F 87 18 134/87 98 - Laboratory Lab Statement: Any lab studies that have been ordered have been reviewed, and results considered in the medical decision making process. EENT Course/Dx - Course Course Of Treatment: Patient presenting with dental abscess that was drained as noted above. Afebrile well appearing. We'll start on penicillin. Small course of hydrocodone prescribed. [employer] reviewed. Patient will follow up with her dentist as scheduled. She'll return for increased swelling, difficulty swallowing, fever, vomiting or if concerned. Patient understands and agrees with plan. - Differential Diagnoses Differential Diagnoses: Dental Abscess, Dental Caries - Diagnoses Provider Diagnoses: Dental abscess Discharge ED - Sign-Out/Discharge Documenting (check all that apply): Patient Departure Patient Received Moderate/Deep Sedation with Procedure: No - Discharge Plan Condition: Good Disposition: HOME Prescriptions: HYDROcodone/ACETAMIN 5-325 MG* [[place] 5-325 TAB*] 1 tab PO Q6H PRN #8 tab MDD 4 PRN Reason: Pain - Moderate Penicillin VK 500 MG TAB(NF) [Penicillin VK 500 mg Tab] 500 mg PO QID #40 tab Patient Education Materials: Dental Abscess (ED) Referrals: Mirian Hernandez CNM [Primary Care Provider] - Additional Instructions: Follow up with your dentist as directed Medication as directed Return to ER if symptoms change or worsen - Billing Disposition and Condition Condition: GOOD Disposition: Home - Attestation Statements Provider Attestation: I was available for consult. This patient was seen by the MON[facility]. The patient was not presented to, seen by, or examined by me. Anoop Dubois MD
== END 2019-03-29 17:58 | disposition home or self-care (01) ==
LOC: ED 14:53
DX: K04.7 Periapical abscess without sinus (principal); F17.210 Nicotine dependence, cigarettes, uncomplicated
CPT/HCPCS: 99282